=== PATIENT | male | born 1990 | race Caucasian/White ===

== ENCOUNTER → 2020-02-10 13:05 | Outpatient (BNVA) | payer BC, SELFPAY | PROVIDERS: PCP Nurse Practitioner Family; Referring Provider Nurse Practitioner Family; Visit Provider Internal Medicine Gastroenterology | DX: Z76.89 Persons encountering health services in other specified circumstances (principal) ==

== ENCOUNTER → 2020-03-16 13:30 | Outpatient (BNVA) | payer BC, SELFPAY | PROVIDERS: PCP Nurse Practitioner Family; Visit Provider Internal Medicine Gastroenterology | DX: Z76.89 Persons encountering health services in other specified circumstances (principal) ==

== ENCOUNTER → 2020-06-01 10:48 | Outpatient (BNVA) | payer BC, SELFPAY | PROVIDERS: PCP Nurse Practitioner Family; Referring Provider Nurse Practitioner Family; Visit Provider Internal Medicine Gastroenterology ==

== ENCOUNTER 2024-07-13 11:27 | Emergency (ER) | payer BC, SELFPAY ==
[2024-07-13 11:47] VITALS: BP 150/94; PULSE 115; RESP 16; TEMP 36.8; O2SAT 98; BMI 27.0
--- NOTE | 2024-07-13 11:52 | ED_ITS ---
HPI - General Adult General Chief complaint: Abdominal Pain Stated complaint: vomiting fever sent from urgent care Time Seen by Provider: 07/13/24 13:07 Source: patient Limitations: no limitations History of Present Illness ED Provider: Ella Christian PA-C HPI narrative: 33-year-old male presents with multiple complaints. Patient states he noted right ear pain in a prominent lymph node on the same side over the past few days. Positive contacts for strep throat. Associated nausea vomiting since this morning. Patient denies overt throat pain. No fever. No trismus no drooling, no abdominal pain. Related Data Home Medications ?Medication ?Instructions ?Recorded ?Confirmed cholecalciferol (vitamin D3) 50 50 mcg PO DAILY 02/10/20 06/10/20 mcg (2,000 unit) capsule famotidine 40 mg tablet (Pepcid) 40 mg PO DAILY 02/10/20 06/10/20 mesalamine 400 mg capsule (with 800 mg PO TID 02/10/20 06/10/20 delayed release tablets inside) Previous Rx's ?Medication ?Instructions ?Recorded adalimumab 40 mg/0.4 mL 40 mg (0.4 mL) subcut Q2W 28 days 04/28/20 subcutaneous pen kit (Humira(CF) #2 ea Pen) famotidine 40 mg tablet 40 mg PO DAILY 30 days #30 tabs 06/10/20 prednisone 10 mg tablet 10 mg PO BID 30 days #60 tabs 06/17/20 metoclopramide HCl 10 mg tablet 10 mg PO Q6H PRN nausea and 07/13/24 vomiting #10 tabs penicillin V potassium 500 mg 500 mg PO BID #19 tabs 07/13/24 tablet Allergies Allergy/AdvReac Type Severity Reaction Status Date / Time No Known Allergies Allergy Verified 07/13/24 11:48 Review of Systems 2 Review of Systems: Yes all other systems are reviewed and are negative Constitutional: Constitutional: Denies fatigue, Denies fever(s) and Reports malaise ENT: Reports otalgia and Denies sore throat Cardiovascular: Cardiovascular: Denies chest pain and Denies dyspnea Respiratory: Respiratory: Denies dyspnea Gastrointestinal: Gastrointestinal: Denies abdominal pain, Reports nausea and Reports vomiting Endocrine: Endocrine: Denies fatigue PMFSH Past Medical History Attestation statement: The following information was validated with the patient. Medical History Crohn's disease of both small and large intestine GERD (gastroesophageal reflux disease) Seasonal allergies Surgical History Hx of colonoscopy (04/27/13) Family History Family History Father No problems noted. Mother HTN (hypertension) Myocardial infarction, Onset Age: 50 Brother Testicular cancer Brother HTN (hypertension) Cardiovascular disease Maternal Grandmother Cancer Social History Social History (Updated 06/01/20 @ 10:55 by Candy Griffith CMA) Household Members: Spouse and Children Housing: House Alcohol intake: former Advance Directives: Yes Advance Directives Information Provided: Yes Advance Directives on File: No Current occupational status: student Physical Exam ED Vital Signs: Vital Signs - 24 hr 07/13/24 11:47 Temperature 98.2 F Pulse Rate 115 H Respiratory Rate 16 Blood Pressure 150/94 H Pulse Oximetry 98 Oxygen Delivery Method Room Air BMI result Body Mass Index 27.0 Const Other: Alert Orientation/consciousness: patient oriented x3 HENMT Other: The right TM is translucent without overlying erythema or exudate, no tragal tenderness no redness or exudate of the external ear canal. The oropharynx is erythematous, tonsils are prominent, uvula midline, no trismus no drooling, no sublingual fluctuance Neck Other: Prominent right-sided anterior cervical lymphadenopathy Resp Effort & Inspection: normal respiratory effort Cardio Other: Normal peripheral perfusion Skin Other: Warm dry no rash Neuro General: patient oriented x3, gait normal, no focal motor deficits and CN's II- XI intact bilaterally Psych Other: Calm cooperative Course Course Course Narrative: This is a rapid medical exam performed by lEla Christian PA-C. The patient is a 33-year-old male who presents with multiple complaints. Associated right- sided prominent cervical node, vague right ear pain, acute onset nausea vomiting today, positive contacts with strep throat. On exam he has a prominent right- sided cervical anterior node, the right TM is translucent without erythema, no tragal tenderness, oropharynx is erythematous without exudate tonsils are prominent. Plan to screen basic labs viral panel strep screen. The patient was stable and can return to the waiting room pending his full medical assessment. Medications Administered Discontinued Medications Generic Name Dose Route Start Last Admin Trade Name Kay PRN Reason Stop Dose Admin Metoclopramide HCl 10 mg 07/13/24 13:09 07/13/24 13:15 Metoclopramide Hcl 10 Mg/2 Ml Vial IM 07/13/24 13:10 10 mg ONCE ONE Administration Penicillin V Potassium 500 mg 07/13/24 13:08 07/13/24 13:15 Penicillin V Potassium 250 Mg Tablet PO 07/13/24 13:09 500 mg ONCE ONE Administration Medical Decision Making Medical Decision Making [facility] Narrative: 33-year-old male presents with multiple complaints. Patient states he noted right ear pain in a prominent lymph node on the same side over the past few days. Positive contacts for strep throat. Associated nausea vomiting since this morning. Patient denies overt throat pain. No fever. No trismus no drooling, no abdominal pain. No chronic issues History: Per patient I have considered the following differential diagnoses: Strep pharyngitis, viral pharyngitis, RPA, SOCIAL WORK MANAGER Plan: Viral panel and strep screen were ordered from triage, he is positive for strep throat. We will treat with penicillin. There was no evidence of RPA or SOCIAL WORK MANAGER based on my exam. I have independently reviewed the following tests: Viral panel negative, strep screen positive Lab Data 07/13/24 12:07 07/13/24 12:07 Labs: Lab Results 07/13/24 07/13/24 07/13/24 Range/Units 12:04 12:05 12:07 WBC 21.2 H (4.8-10.8) X10*3/uL RBC 5.22 (4.60-5.80) X10*6/uL Hgb 15.8 (14.0-18.0) g/dl Hct 47.2 (42.0-52.0) % MCV 90.4 (80.0-98.0) fL MCH 30.3 (27.0-33.0) pg MCHC 33.5 (31.0-36.0) g/dl RDW 13.1 (11.0-16.0) % Plt Count 379 (160-400) X10*3/uL MPV 10.1 (9.4-12.4) fL Immature Gran % (Auto) 0.4 (0.0-0.4) % Neut % (Auto) 92.0 H (45-73) % Lymph % (Auto) 3.9 L (20-40) % [place] % (Auto) 3.0 (2-11) % Eos % (Auto) 0.2 (0-4) % Baso % (Auto) 0.5 (0-2) % Lymph # (Auto) 0.8 L (1.2-4.9) X10*3/uL [place] # (Auto) 0.6 (0.1-1.2) X10*3/uL Eos # (Auto) 0.1 (0.0-0.4) X10*3/uL Baso # (Auto) 0.1 (0.0-0.2) X10*3/uL Abs Immat Gran (auto) 0.09 H (0.00-0.03) X10*3/uL Absolute Neuts (auto) 19.5 H (2.0-8.3) x10*3/uL Absolute Nucleated RBC 0.000 (0.0-0.012) X10*3/uL Nucleated RBC % (auto) 0.0 (0.0-0.2) /100WBC Smear Tech's Comments VERIFIED Sodium 140 (135-145) mmol/L Potassium 4.2 (3.3-5.1) mmol/L Chloride 107 (96-108) mmol/L Carbon Dioxide 24 (22-29) mmol/L Anion Gap 13 (12-20) BUN 8 L (9-16) mg/dL Creatinine 0.83 (0.5-1.4) mg/dL Estim Creat Clear Calc 116.1 Estimated GFR > 60 Random Glucose 132 H (60-115) mg/dL Calcium 9.6 (8.4-10.2) mg/dL Magnesium 1.8 (1.6-2.6) mg/dL Total Bilirubin 0.9 (0.0-1.0) mg/dL AST 20 (5-37) U/L ALT 13 (0-40) U/L Alkaline Phosphatase 90 (39-117) U/L Total Protein 8.8 H (6.5-8.0) g/dL Albumin 4.3 (3.5-5.0) g/dL Lipase 10 (8-78) U/L Influenza Type A (PCR) NEGATIVE (Negative) Influenza Type B (PCR) NEGATIVE (Negative) RSV RNA Qual (PCR) NEGATIVE (Negative) SARS-CoV-2 RNA (RT-PCR) NEGATIVE (Negative) S. pyogenes GrpA BRET Positive A (Negative) Discharge Plan Discharge Clinical Impression: Acute streptococcal pharyngitis Patient Disposition: Home, Self-Care Instructions: Strep Throat (ED) Additional Instructions: You tested positive for strep throat. See home care instructions. Use the metoclopramide as needed for nausea, take the penicillin as directed. Warm saltwater gargles we will help your throat pain. You can use [id number] ibuprofen 600 mg taken every 6 hours with food, alternated with [id number] Tylenol 1000 mg taken every 8 hours, for throat pain and fever. Follow up with your primary care provider as needed. Prescriptions: New penicillin V potassium 500 mg tablet 500 mg PO BID Qty: 19 0RF metoclopramide HCl 10 mg tablet 10 mg PO Q6H PRN (Reason: nausea and vomiting) Qty: 10 0RF No Action Humira(CF) Pen 40 mg/0.4 mL pen injector kit 40 mg subcut Q2W 28 Days Qty: 2 0RF Rx Instructions: Inject 1 pen (40mg) under the skin every other week prednisone 10 mg tablet 10 mg PO BID 30 Days Qty: 60 0RF Rx Instructions: one twice daily or taper as per Dr. Larkin's instructions famotidine 40 mg tablet 40 mg PO DAILY 30 Days Qty: 30 6RF mesalamine 400 mg capsule (with del rel tablets) 800 mg PO TID famotidine [Pepcid] 40 mg tablet 40 mg PO DAILY cholecalciferol (vitamin D3) 50 mcg (2,000 unit) capsule 50 mcg PO DAILY Stand Alone Forms: Work/School Release Print Language: [place]an
[2024-07-13 12:26] LABS: Basophils Absolute Auto 0.1 X10*3/uL (0.0-0.2); Basophils Percent Auto 0.5 % (0-2); Eosinophils Absolute Auto 0.1 X10*3/uL (0.0-0.4); Eosinophils Percent Auto 0.2 % (0-4); Hematocrit 47.2 % (42.0-52.0); Hemoglobin 15.8 g/dl (14.0-18.0); Imm Gran Abs Auto 0.09 X10*3/uL (0.00-0.03); Imm Gran Pct Auto 0.4 % (0.0-0.4); Lymphocytes Absolute Auto 0.8 X10*3/uL (1.2-4.9); Lymphocytes Percent Auto 3.9 % (20-40); MANUAL DIFF FLAG SCAN; Mean Corpuscular HGB Conc 33.5 g/dl (31.0-36.0); Mean Corpuscular Hemoglobin 30.3 pg (27.0-33.0); Mean Corpuscular Volume 90.4 fL (80.0-98.0); Mean Platelet Volume 10.1 fL (9.4-12.4); Monocytes Absolute Auto 0.6 X10*3/uL (0.1-1.2); Neutrophils Absolute Auto 19.5 x10*3/uL (2.0-8.3); Platelet Count 379 X10*3/uL (160-400); Red Blood Count 5.22 X10*6/uL (4.60-5.80); Red Cell Distribution Width 13.1 % (11.0-16.0); SCAN SMEAR FLAG 1; White Blood Count 21.2 X10*3/uL (4.8-10.8)
[2024-07-13 12:51] LABS: SLIDE REVIEW VERIFIED
[2024-07-13 12:53] LABS: IDNOW Serial# 58CA691E; Strep A Nucleic Acid Positive (Negative)
[2024-07-13 12:54] LABS: Alanine Aminotransferase 13 U/L (0-40); Albumin Level 4.3 g/dL (3.5-5.0); Alkaline Phosphatase 90 U/L (39-117); Anion Gap 13 (12-20); Aspartate Amino Transferase 20 U/L (5-37); Bilirubin Total 0.9 mg/dL (0.0-1.0); Blood Urea Nitrogen 8 mg/dL (9-16); Calcium 9.6 mg/dL (8.4-10.2); Carbon Dioxide 24 mmol/L (22-29); Chloride 107 mmol/L (96-108); Creatinine Clr Calc Pharmacy 116.1; Estimated Glomerular Filt Rate > 60; Glucose Random 132 mg/dL (60-115); Lipase 10 U/L (8-78); Magnesium 1.8 mg/dL (1.6-2.6); Potassium 4.2 mmol/L (3.3-5.1); Sodium 140 mmol/L (135-145); Total Protein 8.8 g/dL (6.5-8.0)
[2024-07-13 13:11] LABS: Influenza A PCR NEGATIVE (Negative); Influenza B PCR NEGATIVE (Negative); Resp Syncy Virus RNA Qual PCR NEGATIVE (Negative); SARS COV2 PCR INHOUSE NEGATIVE (Negative)
[2024-07-13] MEDS: Penicillin V Potassium 250 MG TABLET 500 MG PO (13:15)
[2024-07-13] MEDS: Metoclopramide HCl 10 MG/2 ML VIAL IM (13:15)
[2024-07-13 13:28] VITALS: BP 150/94; PULSE 115; RESP 16; TEMP 36.8; O2SAT 98
== END 2024-07-13 13:29 | disposition home or self-care (01) ==
PROVIDERS: Physician Assistant Medical; Emergency Provider Emergency Medicine Emergency Medical Services
DX: J02.0 Streptococcal pharyngitis (principal); H92.01 Otalgia, right ear; R10.2 Pelvic and perineal pain; Z03.818 Encounter for observation for suspected exposure to other biological agents ruled out; Z79.899 Other long term (current) drug therapy
CPT/HCPCS: 0241U; 36415; 80053; 83690; 83735; 85025; 87651; 96372; 99282; 99284; J2765

== ENCOUNTER 2024-09-18 14:48 | Inpatient (IN) | payer BC, OTHER, SELFPAY ==
--- NOTE | ~2024-09-18 | CT_ITS ---
CLINICAL HISTORY: severe low abd pain hx of Crohns CT abdomen and pelvis with contrast Comparison: None Findings: No consolidation or effusion. There is a 17 mm gallstone impacted at the level of the gallbladder neck. The gallbladder is dilated and thickened. There is pericholecystic fluid and there is edema of the mesentery adjacent to the gallbladder. No biliary dilatation. Unremarkable liver, spleen, pancreas, adrenal glands and kidneys. No bowel obstruction, pneumoperitoneum, or pneumatosis. There is a small umbilical hernia containing fat. Unremarkable pelvic contents. Normal appendix. No acute fracture. IMPRESSION: 1. Severe acute cholecystitis. 2. There is a small amount of free fluid within the right upper quadrant. This document has been electronically signed by: Tiera Kelley MD on 09/18/2024 17:46:36
--- NOTE | ~2024-09-18 | XR_ITS ---
CLINICAL HISTORY: desats in pacu, rhonchi and rales lower lobes 1 view chest Comparison: None Findings: Cardiac and mediastinal contours are normal. Mild interstitial prominence with scattered peribronchial thickening. No focal consolidation. No effusion. No pneumothorax. No acute osseous finding. Impression: Mild interstitial prominence with scattered peribronchial thickening. No focal consolidation. No overt edema. No effusion. This document has been electronically signed by: Kevin Peacock MD on 09/20/2024 12:51:08
[2024-09-18 14:58] VITALS: BP 151/101; PULSE 91; RESP 16; TEMP 36.7; O2SAT 98; BMI 26.9
--- NOTE | 2024-09-18 15:03 | ED.GENADULT ---
HPI - General Adult General Chief complaint: Abdominal Pain Stated complaint: Severe Abd Pain Time Seen by Provider: 09/18/24 16:01 Source: patient and old records reviewed Mode of arrival: ambulatory Limitations: no limitations History of Present Illness ED Provider: JEN MAS narrative: 34 yo male with PMH of Crohns who has been controlled on Stelara. He really doesn't have a local GI doctor but still gets prescribed by a GI in [place]. He has no PMH of surgeries. He notes about a week ago he had a flare up of his Crohns and was having a lot of pain it went away and came back today. He denies fevers, no vomiting, no bloody stool. He had a normal BM this AM. He states he has not been on prednisone since 2019. He is looking for a local GI doctor. complaint: abd pain Onset (ago): week(s) (1) Location: abdomen Radiation: non-radiation Severity: severe Quality: stabbing Pain Consistency: intermittent Relieving factors: none Exacerbating factors: movement Associated symptoms: loss of appetite, malaise and nausea/vomiting Treatments prior to arrival: none Related Data Home Medications ?Medication ?Instructions ?Recorded ?Confirmed cholecalciferol (vitamin D3) 50 50 mcg PO DAILY 02/10/20 09/18/24 mcg (2,000 unit) capsule acetaminophen 500 mg tablet 500 - 1,000 mg PO Q6H PRN Pain 09/18/24 09/18/24 famotidine 40 mg tablet 40 mg PO DAILY@0630 PRN Acid Reflux 09/18/24 09/18/24 sertraline 50 mg tablet 50 mg PO DAILY 09/18/24 09/18/24 ustekinumab 90 mg/mL subcutaneous 90 mg subcut [id number] 09/18/24 09/18/24 syringe (Stelara) Allergies Allergy/AdvReac Type Severity Reaction Status Date / Time No Known Allergies Allergy Verified 09/18/24 15:00 Review of Systems Review of Systems: Constitutional : No Weight loss, No Fever, No Chills ENT/Mouth : No sore throat, No Rhinorrhea Eyes: No Swelling, No Redness Cardiovascular : No Chest Pain, No SOB, NoEdema Respiratory : No Cough, No Sputum, No Wheezing Gastrointestinal : Positive Nausea, Positive Vomiting, no Diarrhea, positive abdominal Pain, No Hematochezia, No Melena Genitourinary : No Dysuria, No Urinary Frequency, No Hematuria, No Urgency Musculoskeletal : No joint pain, No Myalgias, No Joint Swelling Skin : No Skin Lesions, No rash Neuro : No Weakness, No Numbness, No Dizziness, No Headache All other systems reviewed and are negative. [facility] Past Medical History Attestation statement: The following information was validated with the patient. Source: old records reviewed Medical History Seasonal allergies GERD (gastroesophageal reflux disease) Crohn's disease of both small and large intestine Surgical History Hx of colonoscopy (04/27/13) Family History Family History Father No problems noted. Mother HTN (hypertension) Myocardial infarction, Onset Age: 50 Brother Testicular cancer Brother HTN (hypertension) Cardiovascular disease Maternal Grandmother Cancer Social History Social History Household Members: Spouse and Children Housing: House Alcohol intake: former Patient Tobacco Use Status: Never used Tobacco Smoked in Last 30 Days: No Use of substances other than those prescribed or required for medical reasons: No Advance Directives: No Advance Directives Information Provided: No Do you have a plan to hurt others: No Plan Nutrition Risks: No Nutritional Risk Current occupational status: student Physical Exam ED Vital Signs: Vital Signs - 24 hr 09/18/24 14:58 Temperature 98.1 F Pulse Rate 91 Respiratory Rate 16 Blood Pressure 151/101 H Pulse Oximetry 98 Oxygen Delivery Method Room Air BMI result Body Mass Index 26.9 Appearance: Alert. Oriented X3. No acute distress. Eyes: Pupils equal, round and reactive to light. ENT: Pharynx normal. Neck: Normal inspection. Neck supple. CVS: Normal heart rate and rhythm. Pulses normal. Respiratory: No respiratory distress. Breath sounds normal. Abdomen: Soft but moderate ttp in lower abdomen and RLQ no rebound but vol guarding noted Skin: Skin warm and dry. Normal skin color. Normal skin turgor. Extremities: No lower extremity edema. No calf ttp Neuro: Oriented X 3. No motor deficit. No sensory deficit. CN2-12 intact Course Course Course Narrative: RME: 34 year male history of kidney stones and Crohn's presents to ED for abdominal pain radiating to back flank without any fever or chills. Patient denies any urinary symptoms. Labs ordered. Reevaluation(s) Reevaluation #1: given WBC count and CRP infection suspected at 456pm IV zosyn ordered Medications Administered Generic Name Dose Route Start Last Admin Trade Name Freq PRN Reason Stop Dose Admin Hydromorphone HCl 1 mg 09/18/24 22:16 09/18/24 22:59 Hydromorphone Hcl 1 Mg/Ml Syringe IVPUSH 1 mg Q4H PRN Administration Pain, Severe (Pain Scale 7-10) Protocol Dextrose/Sodium Chloride 1,000 mls @ 80 mls/hr 09/18/24 18:15 09/18/24 18:35 D5ns IVCONT 80 mls/hr .[id number] WENDI Administration Piperacillin Sod/Tazobactam 50 mls @ 100 mls/hr 09/18/24 23:30 09/18/24 23:58 Sod 3.375 gm/ Sodium Chloride IV Infused Q6H WENDI Infusion Sodium Chloride 3 ml 09/19/24 00:00 09/19/24 00:30 0.9 % Sodium Chloride Flush 3 Ml Syringe IVFLUSH Not Given QSHIFT WENDI Discontinued Medications Generic Name Dose Route Start Last Admin Trade Name Freq PRN Reason Stop Dose Admin Hydromorphone HCl 1 mg 09/18/24 16:02 09/18/24 16:15 Hydromorphone Hcl 1 Mg/Ml Syringe IVPUSH 09/18/24 16:03 1 mg ONCE ONE Administration Protocol Hydromorphone HCl 1 mg 09/18/24 17:30 09/18/24 17:45 Hydromorphone Hcl 1 Mg/Ml Syringe IVPUSH 09/18/24 17:31 1 mg ONCE ONE Administration Protocol Lactated Ringer's 1,000 mls @ 999 mls/hr 09/18/24 16:02 09/18/24 17:45 Lr IV 09/18/24 17:02 Infused .Q1H1M ONE Infusion Piperacillin Sod/Tazobactam 50 mls @ 100 mls/hr 09/18/24 16:56 09/18/24 18:00 Sod 3.375 gm/ Sodium Chloride IV 09/18/24 17:25 Infused ONCE ONE Infusion Iohexol 100 ml 09/18/24 17:11 09/18/24 17:12 Iohexol 350 Mg/Ml 100 Ml Infus..Btl IV 09/18/24 17:12 85 ml ONCE ONE Administration Ketorolac Tromethamine 15 mg 09/18/24 17:30 09/18/24 17:45 Ketorolac Tromethamine 15 Mg/Ml Vial IVPUSH 09/18/24 17:31 15 mg ONCE ONE Administration Ondansetron HCl 4 mg 09/18/24 16:02 09/18/24 16:15 Ondansetron Hcl 4 Mg/2 Ml Vial IVPUSH 09/18/24 16:03 4 mg ONCE ONE Administration Sertraline HCl 50 mg 09/18/24 18:12 09/18/24 18:34 Sertraline Hcl 50 Mg Tablet PO 09/18/24 18:13 50 mg DAILY ONE Administration Medical Decision Making Medical Decision Making [facility] Narrative: 34 yo male with PMH of Cronhs has been well controlled on Stelara notes 1 week ago colicky RLQ pain and lower abdominal pain but no fevers, chills, diarrhea or dysuria. It went away but then today it was much more severe. At this time basic labs, Differential Diagnosis Differential Diagnoses: The differential diagnosis associated with the presentation includes Crohns flare, PSBO, SBO, appendix pathology , less likely pancreatitis denies RUQ pain on exam Admission/Observation Consideration of admission/observation: Escalation of care including admission/observation considered admit for further management and treatment Consult Healthcare Provider Management of the patient was discussed with: Law Secretary (Dr. Zavala in to see patient) pain has moved to RUQ pain at this time suspect possible biliary colic 550pm. Dr. Zavala to admit Lab Data [facility] Lab Attestation statement: I reviewed the patient's lab results. 09/18/24 15:13 09/18/24 15:13 Labs: Lab Results 09/18/24 09/18/24 09/18/24 Range/Units 15:13 16:11 17:27 WBC 15.7 H (4.8-10.8) X10*3/uL RBC 5.14 (4.60-5.80) X10*6/uL Hgb 15.8 (14.0-18.0) g/dl Hct 44.8 (42.0-52.0) % MCV 87.2 (80.0-98.0) fL MCH 30.7 (27.0-33.0) pg MCHC 35.3 (31.0-36.0) g/dl RDW 12.5 (11.0-16.0) % Plt Count 339 (160-400) X10*3/uL MPV 10.2 (9.4-12.4) fL Immature Gran % (Auto) 0.3 (0.0-0.4) % Neut % (Auto) 83.2 H (45-73) % Lymph % (Auto) 9.6 L (20-40) % [place] % (Auto) 5.5 (2-11) % Eos % (Auto) 1.1 (0-4) % Baso % (Auto) 0.3 (0-2) % Lymph # (Auto) 1.5 (1.2-4.9) X10*3/uL [place] # (Auto) 0.9 (0.1-1.2) X10*3/uL Eos # (Auto) 0.2 (0.0-0.4) X10*3/uL Baso # (Auto) 0.1 (0.0-0.2) X10*3/uL Abs Immat Gran (auto) 0.05 H (0.00-0.03) X10*3/uL Absolute Neuts (auto) 13.1 H (2.0-8.3) x10*3/uL Absolute Nucleated RBC 0.000 (0.0-0.012) X10*3/uL Nucleated RBC % (auto) 0.0 (0.0-0.2) /100WBC Sodium 136 (135-145) mmol/L Potassium 3.9 (3.3-5.1) mmol/L Chloride 101 (96-108) mmol/L Carbon Dioxide 26 (22-29) mmol/L Anion Gap 13 (12-20) BUN 10 (9-16) mg/dL Creatinine 0.90 (0.5-1.4) mg/dL Estim Creat Clear Calc 102.3 Estimated GFR > 60 Random Glucose 112 (60-115) mg/dL Lactic Acid 1.6 (0.5-2.0) mmol/L Calcium 9.8 (8.4-10.2) mg/dL Total Bilirubin 1.2 H (0.0-1.0) mg/dL AST 20 (5-37) U/L ALT 14 (0-40) U/L Alkaline Phosphatase 76 (39-117) U/L C-Reactive Protein 19.48 H (< or = 0.50) mg/dL Total Protein 8.3 H (6.5-8.0) g/dL Albumin 4.4 (3.5-5.0) g/dL Lipase 14 (8-78) U/L Urine Color Dark Yellow Urine Appearance Clear Urine pH 5.5 (5.0-9.0) Ur Specific [place] >= 1.030 H (1.005-1.025) Urine Protein 30 (1+) H (Neg-Trace) mg/dL Urine Glucose (UA) Negative (Negative) mg/dL Urine Ketones Trace (Negative) mg/dL Urine Blood Negative (Negative) Urine Nitrite Negative (Negative) Ur Leukocyte Esterase Negative (Negative) Urine RBC 0-2 (0-2) /HPF Urine WBC 0-5 (0-5) /HPF Ur Squamous Epith Cells 0-2 (0-2) /HPF Urine Bacteria None Seen (None Seen) Hyaline Casts 3-5 (0-2) /LPF Independent Interpretation I performed an independent interpretation of an: CT Scan (+ cholecystitis) Radiology Impression Discussion of test interpretation with radiology: I have reviewed the radiologist's reading. Independent Historian Clinical information obtained from an independent historian. History obtained from or confirmed by: Spouse External Record Review External record reviewed: Outpatient record Critical Care Time Critical Care Time Critical Care Time: Yes Total Critical Care Time: 35 Attestation: Time is exclusive of separately billable procedures. Time includes: direct patient care, patient reassessment, coordination of patient care, interpretation of data (laboratory data, pulse oximetry, CT scans), review of patient's medical records, medical consultation and documentation of patient care. Repeat IV dilaudid with improvement in pain. Procedures excluded from critical care time: none. I attest to this time spent taking care of the patient Discharge Plan Discharge Clinical Impression: Acute cholecystitis Abdominal pain Qualifiers: Abdominal location: right lower quadrant Qualified Code(s): R10.31 - Right lower quadrant pain Patient Disposition: Admitted As Inpatient Interventions: Admission Worksheet (ED) Last Done: 09/18/24 18:32
[2024-09-18 15:17] LABS: MANUAL DIFF FLAG NO
[2024-09-18 15:24] LABS: Basophils Absolute Auto 0.1 X10*3/uL (0.0-0.2); Basophils Percent Auto 0.3 % (0-2); Eosinophils Absolute Auto 0.2 X10*3/uL (0.0-0.4); Eosinophils Percent Auto 1.1 % (0-4); Hematocrit 44.8 % (42.0-52.0); Hemoglobin 15.8 g/dl (14.0-18.0); Imm Gran Abs Auto 0.05 X10*3/uL (0.00-0.03); Imm Gran Pct Auto 0.3 % (0.0-0.4); Lymphocytes Absolute Auto 1.5 X10*3/uL (1.2-4.9); Lymphocytes Percent Auto 9.6 % (20-40); Mean Corpuscular HGB Conc 35.3 g/dl (31.0-36.0); Mean Corpuscular Hemoglobin 30.7 pg (27.0-33.0); Mean Corpuscular Volume 87.2 fL (80.0-98.0); Mean Platelet Volume 10.2 fL (9.4-12.4); Monocytes Absolute Auto 0.9 X10*3/uL (0.1-1.2); Monocytes Percent Auto 5.5 % (2-11); Neutrophils Absolute Auto 13.1 x10*3/uL (2.0-8.3); Neutrophils Percent Auto 83.2 % (45-73); Platelet Count 339 X10*3/uL (160-400); Red Blood Count 5.14 X10*6/uL (4.60-5.80); Red Cell Distribution Width 12.5 % (11.0-16.0); White Blood Count 15.7 X10*3/uL (4.8-10.8)
[2024-09-18 16:07] LABS: Alanine Aminotransferase 14 U/L (0-40); Albumin Level 4.4 g/dL (3.5-5.0); Anion Gap 13 (12-20); Aspartate Amino Transferase 20 U/L (5-37); Bilirubin Total 1.2 mg/dL (0.0-1.0); Blood Urea Nitrogen 10 mg/dL (9-16); Calcium 9.8 mg/dL (8.4-10.2); Carbon Dioxide 26 mmol/L (22-29); Chloride 101 mmol/L (96-108); Creatinine Clr Calc Pharmacy 102.3; Estimated Glomerular Filt Rate > 60; Glucose Random 112 mg/dL (60-115); Lipase 14 U/L (8-78); Potassium 3.9 mmol/L (3.3-5.1); Sodium 136 mmol/L (135-145); Total Protein 8.3 g/dL (6.5-8.0)
[2024-09-18] MEDS: ondansetron HCL 4 MG/2 ML VIAL IVPUSH (16:15)
[2024-09-18] MEDS: HYDROmorphone HCl 1 MG/ML SYRINGE IVPUSH ×3 (16:15→22:59)
[2024-09-18] MEDS: Lactated Ringers 1,000 ML 999 ML IV (16:15)
[2024-09-18 16:31] LABS: C Reactive Protein 19.48 mg/dL (< or = 0.50)
[2024-09-18 16:34] LABS: Lactic Acid 1.6 mmol/L (0.5-2.0)
[2024-09-18 17:08] LABS: Alkaline Phosphatase 76 U/L (39-117)
[2024-09-18] MEDS: iohexoL 350 MG/ML 100 ML INFUS..BTL IV (17:12)
[2024-09-18] MEDS: Piperacillin Sodium/Tazobactam 3.375 GM in 0.9 % Sodium Chloride 50 ML IV ×2 (17:24→22:58)
[2024-09-18 17:36] LABS: Appearance Urine Clear; Color Urine Dark Yellow; Glucose Urine UA Negative (Negative); Leukocyte Esterase Urine Negative (Negative); Nitrite Urine Negative (Negative); PH 5.5 (5.0-9.0); Specific Gravity - Urine >= 1.030 (1.005-1.025); UMIC TRIGGER UACC YES; Urine Blood Negative (Negative); Urine Ketones Trace mg/dL (Negative); Urine Protein 30 (1+) mg/dL (Neg-Trace)
[2024-09-18] MEDS: Ketorolac Tromethamine 15 MG/ML VIAL IVPUSH (17:45)
[2024-09-18 17:46] LABS: Bacteria Urine None Seen (None Seen); RBC Urine 0-2 /HPF (0-2); Squamous Epithelial Cell Urine 0-2 /HPF (0-2); WBC Urine 0-5 /HPF (0-5)
--- NOTE | 2024-09-18 17:56 | P.CONGS_ITS ---
History of Present Illness Consult details Consult date: 09/18/24 Narrative: 34-year-old male with known Crohn's disease, in the ER because right upper quadrant pain He says that this started sometime about 03:00 this morning. This seems to have been constant although not really severe he says. He denies any vomiting. He says that because of the persistence of pain, I decided to come to the emergency room He says that a week ago, he had similar pain which resolved on his own after a day. He does admit to having some low-grade pain on and off the rest of the week. He says was attributing this to his Crohn's disease. He was diagnosed with Crohn's disease about 10 years ago. He has been maintained on Stelara. He used to see Dr. Bear of GI here but [place], he said he was seeing fountain operator via [facility] [place]. Review of Systems 2 Constitutional: Constitutional: Denies chills and Denies fever(s) Cardiovascular: Cardiovascular: Denies chest pain, Denies dyspnea and Denies dyspnea on exertion Respiratory: Respiratory: Denies cough, Denies dyspnea and Denies dyspnea on exertion Gastrointestinal: Gastrointestinal: Denies hematochezia and Denies change in bowel habits Genitourinary: Genitourinary: Denies hematuria and Denies difficulty urinating Musculoskeletal: Musculoskeletal: Denies back pain and Denies limited range of motion Neurologic: Denies focal weakness and Denies convulsions Psychiatric: Psychiatric: Denies depression and Denies mood swings PMFSH Past Medical History Medical History Seasonal allergies GERD (gastroesophageal reflux disease) Crohn's disease of both small and large intestine Family History Family History Father No problems noted. Mother HTN (hypertension) Myocardial infarction, Onset Age: 50 Brother Testicular cancer Brother HTN (hypertension) Cardiovascular disease Maternal Grandmother Cancer Surgical History Surgical History Hx of colonoscopy (04/27/13) Social History Social History Household Members: Spouse and Children Housing: House Alcohol intake: former Smoked in Last 30 Days: No Use of substances other than those prescribed or required for medical reasons: No Advance Directives: No Advance Directives Information Provided: No Do you have a plan to hurt others: No Plan Current occupational status: student Meds Allergies Allergy/AdvReac Type Severity Reaction Status Date / Time No Known Allergies Allergy Verified 09/18/24 15:00 Home Medications ?Medication ?Instructions ?Recorded ?Confirmed ?Last Taken ?Type cholecalciferol (vitamin D3) 50 50 mcg PO DAILY 02/10/20 06/10/20 Unknown History mcg (2,000 unit) capsule famotidine 40 mg tablet (Pepcid) 40 mg PO DAILY 02/10/20 06/10/20 Unknown History mesalamine 400 mg capsule (with 800 mg PO TID 02/10/20 06/10/20 Unknown History delayed release tablets inside) Physical Exam 2 Vital Signs: Vital Signs: Last Vital Signs Temp 98.1 F 09/18/24 14:58 Pulse 91 09/18/24 14:58 Resp 16 09/18/24 14:58 BP 151/101 H 09/18/24 14:58 Pulse Ox 98 09/18/24 14:58 O2 Del Method Room Air 09/18/24 14:58 BMI result Body Mass Index 26.9 Const: General: comfortable and no acute distress O rientation/consciousness: patient oriented x3 Neck: Neck: Yes no lymphadenopathy Resp: Auscultation: clear to auscultation bilaterally Cardio: Rhythm: regular rhythm GI: Other: Tender and right upper quadrant although guarding and rebound, otherwise benign Palpation (GI): Soft to palpation, nontender and no guarding Neuro: General: patient oriented x3 Results Labs 09/18/24 15:13 09/18/24 15:13 Labs: Abnormal lab results 09/18/24 09/18/24 Range/Units 15:13 17:27 WBC 15.7 H (4.8-10.8) X10*3/uL Neut % (Auto) 83.2 H (45-73) % Lymph % (Auto) 9.6 L (20-40) % Abs Immat Gran (auto) 0.05 H (0.00-0.03) X10*3/uL Absolute Neuts (auto) 13.1 H (2.0-8.3) x10*3/uL Total Bilirubin 1.2 H (0.0-1.0) mg/dL C-Reactive Protein 19.48 H (< or = 0.50) mg/dL Total Protein 8.3 H (6.5-8.0) g/dL Ur Specific [place] >= 1.030 H (1.005-1.025) Urine Protein 30 (1+) H (Neg-Trace) mg/dL Short CBC 09/18/24 Range/Units 15:13 WBC 15.7 H (4.8-10.8) X10*3/uL Hgb 15.8 (14.0-18.0) g/dl Hct 44.8 (42.0-52.0) % Plt Count 339 (160-400) X10*3/uL BMP 09/18/24 15:13 Sodium 136 Potassium 3.9 Chloride 101 Carbon Dioxide 26 BUN 10 Creatinine 0.90 Calcium 9.8 Liver Function 09/18/24 Range/Units 15:13 Total Bilirubin 1.2 H (0.0-1.0) mg/dL AST 20 (5-37) U/L ALT 14 (0-40) U/L Alkaline Phosphatase 76 (39-117) U/L Albumin 4.4 (3.5-5.0) g/dL Urine 09/18/24 Range/Units 17:27 Urine Color Dark Yellow Urine Appearance Clear Urine pH 5.5 (5.0-9.0) Ur Specific [place] >= 1.030 H (1.005-1.025) Urine Protein 30 (1+) H (Neg-Trace) mg/dL Urine Glucose (UA) Negative (Negative) mg/dL All other labs normal. Assessment and Plan (1) Acute cholecystitis: Status: Acute He has tenderness in the right upper quadrant. I have reviewed his CAT scan and this shows inflammatory changes in the gallbladder consistent with acute cholecystitis. I did explain to him the option of proceeding with a laparoscopic cholecystectomy with possible conversion to open. I reviewed with the risks including but not limited to bleeding, infections, injury to other organs including bowel, liver, bile ducts, retained stones, bile leak, as well as the benefits and alternatives. I explained to him what to expect postoperatively. I did tell him that the operating room here in [place] is not operative tomorrow, Saturday, due to maintenance issues. Depending on his clinical course, I may able to do his surgery on Saturday or Saturday . Another option is to send him out to another institution if he wanted an earlier cholecystectomy After discussions between himself and his , they have decided to stay in the hospital to proceed with IV antibiotic therapy for now and likely do the surgery down the line. His abdominal exam is otherwise benign. He is not septic looking. His bilirubin is 1.2 and we will also follow this. Procedures Date of Service Date of Service: 09/18/24
--- NOTE | 2024-09-18 18:05 | PM.HPGS ---
History of Present Illness History of Present Illness Date of Service: 09/21/24 Chief complaint: Acute Cholecystitis Narrative: Jon Pagan Jr is a 34-year-old male with known Crohn's disease, in the ER because right upper quadrant pain He says that this started sometime about 03:00 this morning. This seems to have been constant although not really severe he says. He denies any vomiting. He says that because of the persistence of pain, I decided to come to the emergency room He says that a week ago, he had similar pain which resolved on his own after a day. He does admit to having some low-grade pain on and off the rest of the week. He says was attributing this to his Crohn's disease. He was diagnosed with Crohn's disease about 10 years ago. He has been maintained on Stelara. He used to see Dr. Bear of GI here but [place] HUIZAR, he said he was seeing conditioner tender via [facility]. Review of Systems Constitutional: Constitutional: Denies chills and Denies fever(s) Cardiovascular: Cardiovascular: Denies chest pain, Denies dyspnea and Denies dyspnea on exertion Respiratory: Respiratory: Denies cough, Denies dyspnea and Denies dyspnea on exertion Gastrointestinal: Gastrointestinal: Denies hematochezia and Denies change in bowel habits Genitourinary: Genitourinary: Denies hematuria and Denies difficulty urinating Musculoskeletal: Musculoskeletal: Denies back pain and Denies limited range of motion Neurologic: Denies focal weakness and Denies convulsions Psychiatric: Psychiatric: Denies depression and Denies mood swings PMF Past Medical History Medical History Seasonal allergies GERD (gastroesophageal reflux disease) Crohn's disease of both small and large intestine Family History Family History Father No problems noted. Mother HTN (hypertension) Myocardial infarction, Onset Age: 50 Brother Testicular cancer Brother HTN (hypertension) Cardiovascular disease Maternal Grandmother Cancer Surgical History Surgical History Hx of colonoscopy (04/27/13) Social History Social History Household Members: Significant Other Housing: Apartment Do you presently have visiting nurse or other home services: No Alcohol intake: former Patient Tobacco Use Status: Never used Tobacco service: No Current occupational status: student Meds Allergies Allergy/AdvReac Type Severity Reaction Status Date / Time No Known Allergies Allergy Verified 09/18/24 15:00 Home Medications ?Medication ?Instructions ?Recorded ?Confirmed ?Last Taken ?Type cholecalciferol (vitamin D3) 50 50 mcg PO DAILY 02/10/20 09/18/24 09/18/24 History mcg (2,000 unit) capsule acetaminophen 500 mg tablet 500 - 1,000 mg PO Q6H PRN Pain 09/18/24 09/18/24 Unknown History famotidine 40 mg tablet 40 mg PO DAILY@0630 PRN Acid Reflux 09/18/24 09/18/24 Unknown History sertraline 50 mg tablet 50 mg PO DAILY 09/18/24 09/18/24 09/18/24 History ustekinumab 90 mg/mL subcutaneous 90 mg subcut [id number] 09/18/24 09/18/24 4 Weeks Ago History syringe (Stelara) ~08/21/24 Physical Exam Vital Signs: Vital Signs: Last Vital Signs Temp 98.1 F 09/18/24 14:58 Pulse 91 09/18/24 14:58 Resp 16 09/18/24 14:58 BP 151/101 H 09/18/24 14:58 Pulse Ox 98 09/18/24 14:58 O2 Del Method Room Air 09/18/24 14:58 BMI result Body Mass Index 26.9 Const: General: comfortable and no acute distress Orientation/consciousness: patient oriented x3 Eyes: Other: Anicteric Neck: Neck: Yes no lymphadenopathy Resp: Auscultation: clear to auscultation bilaterally Cardio: Rhythm: regular rhythm GI: Other: Some tenderness on right upper quadrant, with no guarding or rebound Palpation (GI): Soft to palpation, nontender and no guarding Neuro: General: patient oriented x3 Results Results Labs: Short CBC 09/18/24 Range/Units 15:13 WBC 15.7 H (4.8-10.8) X10*3/uL Hgb 15.8 (14.0-18.0) g/dl Hct 44.8 (42.0-52.0) % Plt Count 339 (160-400) X10*3/uL BMP 09/18/24 15:13 Sodium 136 Potassium 3.9 Chloride 101 Carbon Dioxide 26 BUN 10 Creatinine 0.90 Calcium 9.8 Liver Function 09/18/24 Range/Units 15:13 Total Bilirubin 1.2 H (0.0-1.0) mg/dL AST 20 (5-37) U/L ALT 14 (0-40) U/L Alkaline Phosphatase 76 (39-117) U/L Albumin 4.4 (3.5-5.0) g/dL Urine 09/18/24 Range/Units 17:27 Urine Color Dark Yellow Urine Appearance Clear Urine pH 5.5 (5.0-9.0) Ur Specific [place] >= 1.030 H (1.005-1.025) Urine Protein 30 (1+) H (Neg-Trace) mg/dL Urine Glucose (UA) Negative (Negative) mg/dL Abdomen CT scan report/results: report reviewed and image reviewed CT scan - pelvis: report reviewed and image reviewed Additional studies: There is a 17 mm gallstone impacted at the level of the gallbladder neck. The gallbladder is dilated and thickened. There is pericholecystic fluid and there is edema of the mesentery adjacent to the gallbladder. No biliary dilatation. Unremarkable liver, spleen, pancreas, adrenal glands and kidneys. No bowel obstruction, pneumoperitoneum, or pneumatosis. There is a small umbilical hernia containing fat. Unremarkable pelvic contents. Normal appendix. No acute fracture. IMPRESSION: 1. Severe acute cholecystitis. 2. There is a small amount of free fluid within the right upper quadrant. Assessment and Plan (1) Acute cholecystitis: Status: Acute He has tenderness in the right upper quadrant. I have reviewed his CAT scan and this shows inflammatory changes in the gallbladder consistent with acute cholecystitis. I did explain to him the option of proceeding with a laparoscopic cholecystectomy with possible conversion to open. I reviewed with the risks including but not limited to bleeding, infections, injury to other organs including bowel, liver, bile ducts, retained stones, bile leak, as well as the benefits and alternatives. I explained to him what to expect postoperatively. I did tell him that the operating room here in [place] is not operative tomorrow, Saturday, due to maintenance issues. Depending on his clinical course, I may able to do his surgery on Saturday or Saturday . Another option is to send him out to another institution if he wanted an earlier cholecystectomy After discussions between himself and his , they have decided to stay in the hospital to proceed with IV antibiotic therapy for now and likely do the surgery down the line. His abdominal exam is otherwise benign. He is not septic looking. His bilirubin is 1.2 and we will also follow this. Quality Stroke Does the patient have a stroke diagnosis?: No VTE Prior VTE?: No VTE Risk Level:: Medical - low VTE Device Contraindication: N/A - Device Ordered VTE Drug Contraindication: Treatment Not Indicated Procedures Date of Service Date of Service: 09/21/24
[2024-09-18] MEDS: Sertraline HCL 50 MG TABLET PO (18:34)
--- NOTE | 2024-09-18 18:34 | PHA.MEDREC ---
Addendum entered by Dennis Sherwood [facility] 09/18/24 18:51: med rec reviewed Original Note: Pharmacy Consult ? Medication Reconciliation Pharmacy has completed the medication reconciliation. Spoke with pt and he confirmed his medications. Pt states he is still taking the Sertraline 50mg tab once a day and states he took one this morning and is still filling them at [facility]. I went to call [facility] but they had already closed for the night. Pt confirmed his Stelara injection once every 2 months and confirmed he last took it at the end of July.
[2024-09-18] MEDS: Dextrose 5 % and 0.9 % NaCl 1,000 ML 80 ML IVCONT (18:35)
[2024-09-18 19:12] VITALS: BP 122/83; PULSE 94; RESP 18; TEMP 37.1; O2SAT 95
[2024-09-18 23:01] VITALS: BP 128/82; PULSE 85; RESP 16; TEMP 36.7; O2SAT 96
[2024-09-19] VITALS (10 sets, daily range): BP systolic 105–145; BP diastolic 64–87; PULSE 85–108; RESP 14–18; TEMP 36.3–37.3; O2SAT 92–95; BMI 27.0
[2024-09-19] MEDS: HYDROmorphone HCl 1 MG/ML SYRINGE IVPUSH ×4 (03:05→19:21)
[2024-09-19] MEDS: Piperacillin Sodium/Tazobactam 3.375 GM in 0.9 % Sodium Chloride 50 ML IV ×4 (05:17→23:08)
[2024-09-19] MEDS: Dextrose 5 % and 0.9 % NaCl 1,000 ML 80 ML IVCONT ×2 (06:10→17:52)
[2024-09-19 06:47] LABS: Hematocrit 40.1 % (42.0-52.0); Hemoglobin 13.6 g/dl (14.0-18.0); Mean Corpuscular HGB Conc 33.9 g/dl (31.0-36.0); Mean Corpuscular Hemoglobin 30.6 pg (27.0-33.0); Mean Corpuscular Volume 90.1 fL (80.0-98.0); Mean Platelet Volume 10.5 fL (9.4-12.4); Platelet Count 282 X10*3/uL (160-400); Red Blood Count 4.45 X10*6/uL (4.60-5.80); Red Cell Distribution Width 12.7 % (11.0-16.0); White Blood Count 10.5 X10*3/uL (4.8-10.8)
[2024-09-19 07:08] LABS: Anion Gap 11 (12-20); Blood Urea Nitrogen 8 mg/dL (9-16); Calcium 8.7 mg/dL (8.4-10.2); Carbon Dioxide 26 mmol/L (22-29); Chloride 106 mmol/L (96-108); Creatinine Clr Calc Pharmacy 121.2; Estimated Glomerular Filt Rate > 60; Glucose Random 93 mg/dL (60-115); Potassium 3.6 mmol/L (3.3-5.1); Sodium 139 mmol/L (135-145)
[2024-09-19] MEDS: Sertraline HCL 25 MG TABLET PO (08:20)
--- NOTE | 2024-09-19 10:45 | PC.NURSE ---
Dr. Zavala at bedside.
--- NOTE | 2024-09-19 11:19 | PM.PNGS ---
Subjective Subjective Date of Service: 09/20/24 Interval history: Says he feels better this morning Still admits to pain but much improved Ask for some oral meds instead for breakthrough pain No fever Physical Exam Vital Signs: Vital Signs: Last Vital Signs Temp 98.2 F 09/19/24 10:00 Pulse 92 09/19/24 10:00 Resp 14 09/19/24 10:00 BP 128/85 09/19/24 10:00 Pulse Ox 92 09/19/24 10:00 O2 Del Method Room Air 09/19/24 10:00 BMI result Body Mass Index 26.9 Const: Other: Looks well General: comfortable and no acute distress Eyes: Other: Anicteric Resp: Effort & Inspection: normal respiratory effort Cardio: Rate: regular rate GI: Palpation (GI): Soft to palpation, not firm, Tenderness to palpation present (GI) (Much less tender in right upper quadrant) and no guarding Objective Data Active Medications Acetaminophen (Acetaminophen 325 Mg Tablet) 650 mg PO Q6H PRN PRN Reason: Pain, Mild 1-3,fever,headache Calcium Carbonate (Calcium Carbonate 750 Mg Tab.Chew) 750 mg PO Q4H PRN PRN Reason: Heartburn Hydromorphone HCl (Hydromorphone Hcl 1 Mg/Ml Syringe) 1 mg IVPUSH Q4H PRN; Protocol PRN Reason: Pain, Severe (Pain Scale 7-10) Last Admin: 09/19/24 08:25 Dose: 1 mg Documented By: MARIOLA Dextrose/Sodium Chloride (D5ns) 1,000 mls @ 80 mls/hr IVCONT .[id number] [facility] Last Admin: 09/19/24 06:10 Dose: 80 mls/hr Documented By: MICHAEL Piperacillin Sod/Tazobactam (Sod 3.375 gm/ Sodium Chloride) 50 mls @ 100 mls/hr IV Q6H [facility] Last Infusion: 09/19/24 05:49 Dose: Infused Documented By: MICHAEL Melatonin (Melatonin 3 Mg Tablet) 6 mg PO BEDTIME PRN PRN Reason: Insomnia Sertraline HCl (Sertraline Hcl 25 Mg Tablet) 25 mg PO DAILY [facility] Last Admin: 09/19/24 08:20 Dose: 25 mg Documented By: MARIOLA Sodium Chloride (0.9 % Sodium Chloride Flush 3 Ml Syringe) 3 ml IVFLUSH QSHIFT [facility]ENDI Last Admin: 09/19/24 08:21 Dose: Not Given Documented By: MARIOLA Non-Admin Reason: IV Running Labs 09/19/24 06:09 09/19/24 06:09 Labs: Laboratory Results - last 24 hr 09/18/24 09/18/24 09/18/24 15:13 16:11 17:27 MCV 87.2 MCH 30.7 MCHC 35.3 RDW 12.5 Plt Count 339 MPV 10.2 Immature Gran % (Auto) 0.3 Neut % (Auto) 83.2 H Lymph % (Auto) 9.6 L [place] % (Auto) 5.5 Eos % (Auto) 1.1 Baso % (Auto) 0.3 Lymph # (Auto) 1.5 [place] # (Auto) 0.9 Eos # (Auto) 0.2 Baso # (Auto) 0.1 Abs Immat Gran (auto) 0.05 H Absolute Neuts (auto) 13.1 H Absolute Nucleated RBC 0.000 Nucleated RBC % (auto) 0.0 Anion Gap 13 Estim Creat Clear Calc 102.3 Estimated GFR > 60 Random Glucose 112 Lactic Acid 1.6 Calcium 9.8 Total Bilirubin 1.2 H AST 20 ALT 14 Alkaline Phosphatase 76 C-Reactive Protein 19.48 H Total Protein 8.3 H Albumin 4.4 Lipase 14 Urine Color Dark Yellow Urine Appearance Clear Urine pH 5.5 Ur Specific [place] >= 1.030 H Urine Protein 30 (1+) H Urine Glucose (UA) Negative Urine Ketones Trace Urine Blood Negative Urine Nitrite Negative Ur Leukocyte Esterase Negative Urine RBC 0-2 Urine WBC 0-5 Ur Squamous Epith Cells 0-2 Urine Bacteria None Seen Hyaline Casts 3-5 09/19/24 06:09 MCV 90.1 MCH 30.6 MCHC 33.9 RDW 12.7 Plt Count 282 MPV 10.5 Immature Gran % (Auto) Neut % (Auto) Lymph % (Auto) [place] % (Auto) Eos % (Auto) Baso % (Auto) Lymph # (Auto) [place] # (Auto) Eos # (Auto) Baso # (Auto) Abs Immat Gran (auto) Absolute Neuts (auto) Absolute Nucleated RBC 0.000 Nucleated RBC % (auto) 0.0 Anion Gap 11 L Estim Creat Clear Calc 121.2 Estimated GFR > 60 Random Glucose 93 Lactic Acid Calcium 8.7 D Total Bilirubin AST ALT Alkaline Phosphatase C-Reactive Protein Total Protein Albumin Lipase Urine Color Urine Appearance Urine pH Ur Specific [place] Urine Protein Urine Glucose (UA) Urine Ketones Urine Blood Urine Nitrite Ur Leukocyte Esterase Urine RBC Urine WBC Ur Squamous Epith Cells Urine Bacteria Hyaline Casts Procedures Date of Service Date of Service: 09/20/24 Progress Note: A&P Assessment and plan (1) Acute cholecystitis: Status: Acute Assessment and Plan: Clinically much improved WBC and pain much better Looks well and comfortable Continue IV antibiotics for now Keep on clear liquids Possible cholecystectomy tomorrow or Saturday Labs okay Check LFTs at bedside Time Spent With Patient Time: Total time managing care of this patient today ____ minutes. Quality Stroke Does the patient have a stroke diagnosis?: No VTE Prior VTE?: No VTE Risk Level:: Medical - low VTE Device Contraindication: N/A - Device Ordered VTE Drug Contraindication: Treatment Not Indicated
[2024-09-19 12:51] LABS: Alanine Aminotransferase 8 U/L (0-40); Albumin Level 3.5 g/dL (3.5-5.0); Alkaline Phosphatase 62 U/L (39-117); Aspartate Amino Transferase 16 U/L (5-37); Bilirubin Direct 0.4 mg/dL (0.0-0.5); Bilirubin Total 0.9 mg/dL (0.0-1.0); Total Protein 6.7 g/dL (6.5-8.0)
--- NOTE | 2024-09-19 14:33 | MHC.CM.PN ---
pt lives with s/o and children pt is working willnot need services whend cd has own ride home
[2024-09-19] MEDS: oxyCODONE HCl Immed Release 5 MG TABLET 10 MG PO ×2 (14:39→21:50)
[2024-09-19 18:29] LABS: Alanine Aminotransferase 8 U/L (0-40); Albumin Level 3.6 g/dL (3.5-5.0); Alkaline Phosphatase 64 U/L (39-117); Aspartate Amino Transferase 15 U/L (5-37); Bilirubin Direct 0.3 mg/dL (0.0-0.5); Bilirubin Total 0.6 mg/dL (0.0-1.0)
[2024-09-20] VITALS (14 sets, daily range): BP systolic 129–160; BP diastolic 62–100; PULSE 76–106; RESP 12–18; TEMP 36.1–36.7; O2SAT 92–98
[2024-09-20] MEDS: HYDROmorphone HCl 1 MG/ML SYRINGE IVPUSH ×3 (03:36→19:07)
[2024-09-20] MEDS: Piperacillin Sodium/Tazobactam 3.375 GM in 0.9 % Sodium Chloride 50 ML IV ×4 (04:53→22:50)
[2024-09-20] MEDS: Dextrose 5 % and 0.9 % NaCl 1,000 ML 80 ML IVCONT ×2 (06:23→22:50)
[2024-09-20] MEDS: oxyCODONE HCl Immed Release 5 MG TABLET 10 MG PO ×4 (07:48→22:58)
[2024-09-20] MEDS: Sertraline HCL 25 MG TABLET PO (07:48)
--- NOTE | 2024-09-20 09:20 | HO.ANESPROP2 ---
[facility] Active Problems Active Problems: All Active Problems Acute cholecystitis (Acute) Abdominal pain (Acute) GERD (gastroesophageal reflux disease) (Acute) Crohn's disease of both small and large intestine (Acute) Past Medical History Medical History Seasonal allergies GERD (gastroesophageal reflux disease) Crohn's disease of both small and large intestine Family History Family History Father No problems noted. Mother HTN (hypertension) Myocardial infarction, Onset Age: 50 Brother Testicular cancer Brother HTN (hypertension) Cardiovascular disease Maternal Grandmother Cancer Family history of problems with anesthesia: No Surgical History Surgical History Hx of colonoscopy (04/27/13) History of Problems with Anesthesia: No Social History Social History Household Members: Significant Other Housing: Apartment Do you presently have visiting nurse or other home services: No Alcohol intake: former Patient Tobacco Use Status: Never used Tobacco Smoked in Last 30 Days: No Use of substances other than those prescribed or required for medical reasons: No Currently Displaying Signs/Symptoms of Drug Intoxication Withdrawal: No Have you been hit, kicked, punched, or otherwise hurt by someone within the past year? If so, by whom?: No Do you feel safe in your current relationship?: No Current Relationship Is there a partner from a previous relationship who is making you feel unsafe now?: No Are you made to feel afraid or neglected: No Advance Directives: No Advance Directives Information Provided: No Do you have a plan to hurt others: No Plan Recently lost weight without trying: No How much weight loss: Not applicable Eating poorly because of decreased appetite: No Nutrition screen score: 0 Nutrition Risks: No Nutritional Risk Poor oral hygiene: No service: No Current occupational status: student Meds Allergies Allergy/AdvReac Type Severity Reaction Status Date / Time No Known Allergies Allergy Verified 09/18/24 15:00 Active Medications: Current Medications Acetaminophen (Acetaminophen 325 Mg Tablet) 650 mg PO Q6H PRN PRN Reason: Pain, Mild 1-3,fever,headache Calcium Carbonate (Calcium Carbonate 750 Mg Tab.Chew) 750 mg PO Q4H PRN PRN Reason: Heartburn Hydromorphone HCl (Hydromorphone Hcl 1 Mg/Ml Syringe) 1 mg IVPUSH Q4H PRN; Protocol PRN Reason: Pain, Severe (Pain Scale 7-10) Last Admin: 09/20/24 03:36 Dose: 1 mg Dextrose/Sodium Chloride (D5ns) 1,000 mls @ 80 mls/hr IVCONT .[id number] [facility] Last Admin: 09/20/24 06:23 Dose: 80 mls/hr Piperacillin Sod/Tazobactam (Sod 3.375 gm/ Sodium Chloride) 50 mls @ 100 mls/hr IV Q6H [facility] Last Infusion: 09/20/24 05:27 Dose: Infused Melatonin (Melatonin 3 Mg Tablet) 6 mg PO BEDTIME PRN PRN Reason: Insomnia Oxycodone HCl (Oxycodone Hcl Immed Release 5 Mg Tablet) 10 mg PO Q4H PRN PRN Reason: Pain, Moderate(Pain Scale 4-6) Last Admin: 09/20/24 07:48 Dose: 10 mg Sertraline HCl (Sertraline Hcl 25 Mg Tablet) 25 mg PO DAILY [facility] Last Admin: 09/20/24 07:48 Dose: 25 mg Sodium Chloride (0.9 % Sodium Chloride Flush 3 Ml Syringe) 3 ml IVFLUSH QSHIFT [facility] Last Admin: 09/20/24 06:56 Dose: Not Given Home Medications ?Medication ?Instructions ?Recorded ?Confirmed ?Last Taken ?Type cholecalciferol (vitamin D3) 50 50 mcg PO DAILY 02/10/20 09/18/24 09/18/24 History mcg (2,000 unit) capsule acetaminophen 500 mg tablet 500 - 1,000 mg PO Q6H PRN Pain 09/18/24 09/18/24 Unknown History famotidine 40 mg tablet 40 mg PO DAILY@0630 PRN Acid Reflux 09/18/24 09/18/24 Unknown History sertraline 50 mg tablet 50 mg PO DAILY 09/18/24 09/18/24 09/18/24 History ustekinumab 90 mg/mL subcutaneous 90 mg subcut [id number] 09/18/24 09/18/24 4 Weeks Ago History syringe (Stelara) ~08/21/24 Exam Height,Weight and Vital Signs: Height 5 ft 6 in Weight 76 kg Last Vital Signs Temp 97.2 F 09/20/24 07:40 Pulse 82 09/20/24 07:40 Resp 16 09/20/24 07:40 BP 145/83 H 09/20/24 07:40 Pulse Ox 96 09/20/24 07:40 O2 Del Method Room Air 09/20/24 07:40 Pertinent Lab Results Pertinent Lab Results: Laboratory Tests 09/18/24 09/18/24 09/18/24 15:13 16:11 17:27 WBC 15.7 H RBC 5.14 Hgb 15.8 Hct 44.8 MCV 87.2 MCH 30.7 MCHC 35.3 RDW 12.5 Plt Count 339 MPV 10.2 Immature Gran % (Auto) 0.3 Neut % (Auto) 83.2 H Lymph % (Auto) 9.6 L Fannin % (Auto) 5.5 Eos % (Auto) 1.1 Baso % (Auto) 0.3 Lymph # (Auto) 1.5 Fannin # (Auto) 0.9 Eos # (Auto) 0.2 Baso # (Auto) 0.1 Abs Immat Gran (auto) 0.05 H Absolute Neuts (auto) 13.1 H Absolute Nucleated RBC 0.000 Nucleated RBC % (auto) 0.0 Sodium 136 Potassium 3.9 Chloride 101 Carbon Dioxide 26 Anion Gap 13 BUN 10 Creatinine 0.90 Estim Creat Clear Calc 102.3 Estimated GFR > 60 Random Glucose 112 Lactic Acid 1.6 Calcium 9.8 Total Bilirubin 1.2 H Direct Bilirubin AST 20 ALT 14 Alkaline Phosphatase 76 C-Reactive Protein 19.48 H Total Protein 8.3 H Albumin 4.4 Lipase 14 Urine Color Dark Yellow Urine Appearance Clear Urine pH 5.5 Ur Specific [place] >= 1.030 H Urine Protein 30 (1+) H Urine Glucose (UA) Negative Urine Ketones Trace Urine Blood Negative Urine Nitrite Negative Ur Leukocyte Esterase Negative Urine RBC 0-2 Urine WBC 0-5 Ur Squamous Epith Cells 0-2 Urine Bacteria None Seen Hyaline Casts 3-5 09/19/24 09/19/24 06:09 18:06 WBC 10.5 RBC 4.45 L Hgb 13.6 L Hct 40.1 L MCV 90.1 MCH 30.6 MCHC 33.9 RDW 12.7 Plt Count 282 MPV 10.5 Immature Gran % (Auto) Neut % (Auto) Lymph % (Auto) Fannin % (Auto) Eos % (Auto) Baso % (Auto) Lymph # (Auto) Fannin # (Auto) Eos # (Auto) Baso # (Auto) Abs Immat Gran (auto) Absolute Neuts (auto) Absolute Nucleated RBC 0.000 Nucleated RBC % (auto) 0.0 Sodium 139 Potassium 3.6 Chloride 106 Carbon Dioxide 26 Anion Gap 11 L BUN 8 L Creatinine 0.76 Estim Creat Clear Calc 121.2 Estimated GFR > 60 Random Glucose 93 Lactic Acid Calcium 8.7 D Total Bilirubin 0.9 0.6 Direct Bilirubin 0.4 0.3 AST 16 15 ALT 8 8 Alkaline Phosphatase 62 64 C-Reactive Protein Total Protein 6.7 7.0 Albumin 3.5 3.6 Lipase Urine Color Urine Appearance Urine pH Ur Specific [place] Urine Protein Urine Glucose (UA) Urine Ketones Urine Blood Urine Nitrite Ur Leukocyte Esterase Urine RBC Urine WBC Ur Squamous Epith Cells Urine Bacteria Hyaline Casts Airway Mallampati Class: II TM Dist: >3cm Neck ROM: Full Assessment and Plan Assessment Anesthesia Assessment: Anesthesia Plan Discussed and Chart Reviewed Final Anesthetic Review Family History of Problems with Anesthesia: No History of Problems with Anesthesia: No NPO: Yes ASA Class: II and Emergency Final Preanesthetic Review: No Changes in Pt Med Stat, Meds/Allgs Chart Reviewed, Consent Obtained/Reviewed and Anes Risks/Benef Reviewed Patient Risk: Low Procedure Risk: Intermediate Anesthetic Plan Anesthetic Plan: GA Disposition: Standard PACU
--- NOTE | 2024-09-20 09:35 | P.PNGS_ITS ---
Subjective Subjective Date of Service: 09/20/24 Interval history: he says he is ok still asks for pain meds no fever Physical Exam 2 Vital Signs: Vital Signs: Last Vital Signs Temp 97.2 F 09/20/24 07:40 Pulse 82 09/20/24 07:40 Resp 16 09/20/24 07:40 BP 145/83 H 09/20/24 07:40 Pulse Ox 96 09/20/24 07:40 O2 Del Method Room Air 09/20/24 07:40 BMI result Body Mass Index 27.0 Const: General: comfortable and no acute distress Eyes: Other: anicteric Resp: Effort & Inspection: normal respiratory effort Cardio: Rate: regular rate GI: Palpation (GI): Soft to palpation, not firm, Tenderness to palpation present (GI) (still with some tenderness on RUQ) and no guarding Objective Data Active Medications Acetaminophen (Acetaminophen 325 Mg Tablet) 650 mg PO Q6H PRN PRN Reason: Pain, Mild 1-3,fever,headache Calcium Carbonate (Calcium Carbonate 750 Mg Tab.Chew) 750 mg PO Q4H PRN PRN Reason: Heartburn Fentanyl (Fentanyl Citrate/Pf 100 Mcg/2 Ml Vial) 50 mcg IVPUSH Q5M PRN PRN Reason: Pain, Moderate to Severe (Pain Scale 4-10) Stop: 09/20/24 15:21 Hydromorphone HCl (Hydromorphone Hcl 1 Mg/Ml Syringe) 1 mg IVPUSH Q4H PRN; Protocol PRN Reason: Pain, Severe (Pain Scale 7-10) Last Admin: 09/20/24 03:36 Dose: 1 mg Documented By: RANDY Dextrose/Sodium Chloride (D5ns) 1,000 mls @ 80 mls/hr IVCONT .[id number] [facility] Last Infusion: 09/20/24 09:21 Dose: 0 mls/hr Documented By: ORESTESFAMamta Piperacillin Sod/Tazobactam (Sod 3.375 gm/ Sodium Chloride) 50 mls @ 100 mls/hr IV Q6H [facility] Last Infusion: 09/20/24 05:27 Dose: Infused Documented By: RANDY Melatonin (Melatonin 3 Mg Tablet) 6 mg PO BEDTIME PRN PRN Reason: Insomnia Naloxone HCl (Naloxone Hcl 0.4 Mg/Ml Vial) 0.04 mg IVPUSH Q5M PRN PRN Reason: Excessive sedation or RR < 8 Ondansetron HCl (Ondansetron Hcl 4 Mg/2 Ml Vial) 4 mg IVPUSH ONCE PRN PRN Reason: Nausea and Vomiting Stop: 09/20/24 15:21 Oxycodone HCl (Oxycodone Hcl Immed Release 5 Mg Tablet) 10 mg PO Q4H PRN PRN Reason: Pain, Moderate(Pain Scale 4-6) Last Admin: 09/20/24 07:48 Dose: 10 mg Documented By: ORESTESFAMamta Sertraline HCl (Sertraline Hcl 25 Mg Tablet) 25 mg PO DAILY [facility] Last Admin: 09/20/24 07:48 Dose: 25 mg Documented By: ORESTESFAMamta Sodium Chloride (0.9 % Sodium Chloride Flush 3 Ml Syringe) [address] [facility] Last Admin: 09/20/24 06:56 Dose: Not Given Documented By: KHOI Non-Admin Reason: Previously Administered Labs 09/19/24 06:09 09/19/24 06:09 Labs: Laboratory Results - last 24 hr 09/19/24 09/19/24 06:09 18:06 Total Bilirubin 0.9 0.6 Direct Bilirubin 0.4 0.3 AST 16 15 ALT 8 8 Alkaline Phosphatase 62 64 Total Protein 6.7 7.0 Albumin 3.5 3.6 Microbiology Microbiology Results: Microbiology 09/18/24 16:11 Blood Culture - Preliminary Blood - Venous No growth after 24 hours. 09/18/24 16:11 Blood Culture - Preliminary Blood - Venous No growth after 24 hours. Procedures Date of Service Date of Service: 09/20/24 Progress Note: A&P Assessment and plan (1) Acute cholecystitis: Status: Acute Assessment and Plan: still with symptoms plan lap dylan this AM reviewed technique of procedure, risks, benefits, extensively he understands and has given consent at bedside LFTS normal Time Spent With Patient Time: Total time managing care of this patient today ____ minutes. Quality Stroke Does the patient have a stroke diagnosis?: No VTE Prior VTE?: No VTE Risk Level:: Medical - low VTE Device Contraindication: N/A - Device Ordered VTE Drug Contraindication: Treatment Not Indicated
--- NOTE | 2024-09-20 11:22 | W.PM.OPN ---
Operative Note Operative Note Date of Service: 09/20/24 Narrative: Preop diagnosis: Acute calculous cholecystitis Postop diagnosis: Acute calculous cholecystitis, with severe erythema, and induration and edema of the gallbladder Procedure: Laparoscopic cholecystectomy , with difficult dissection in view of the severe inflammatory changes surrounding the gallbladder Surgeon: Gaurav Zavala MD public health training assistant: EVELINA Kohli He was brought to the operating room. He was placed supine under general anesthesia via endotracheal tube. The abdomen was prepped and draped in the usual sterile fashion. A surgical time-out was done. The patient he is scheduled IV Zosyn. I made a short supraumbilical incision with a blade 15. There was note of a hernia this area. I therefore sharply dissected the full-thickness of the skin subcutaneous fat and define the hernia. The hernia was sharply dissected with Metzenbaum scissors down to the fascial defect. This was fat containing. I divided all the stones tethering the hernia contents with the fascial edge with Metzenbaum scissors until I was able to completely reduce this hernia. The hernia defect was about 1 0.2 cm in diameter. I was able to enter the peritoneal cavity. Through this incision a Griffith port was introduced. Pneumoperitoneum was introduced to a pressure of 15 mm Hg. From here on the rest of the procedure was done under vision with the 10 mm laparoscope. With laparoscopic visualization and inserted a 5/12 mm port in the epigastric area below the subcostal margin. Two 5 mm ports were introduced below the subcostal margin along the anterior axillary line and the midclavicular line. The fundus gallbladder was visualized but this was covered entirely by omental fat. We carefully used graspers through the working ports to separate some of the indurated omental fat from the fundus of the gallbladder until we had an area which we could use for aspiration. I used an aspirating needle fundus to decompress the gallbladder. Clear fluid was drained history with a hydrops. Once I felt that the gallbladder was adequately decompressed, I removed the aspirating needle. I applied a grasper again in the fundus to retract the gallbladder cephalad. I then proceeded to do careful dissection of the rest of the anterior wall of the gallbladder using the [place] dissector to release all these markedly adherent omental fat. This part of the procedure took an extended period of time because of the amount of adherent omentum. Eventually was able to release all of the omentum and expose the entire anterior wall. I was able to apply a grasper towards the pouch. The neck was also indurated so I had to again to careful dissection with the [place] dissector as well as with the tip of laparoscopic suction to release all this indurated tissue and expose as much of the cystic duct as possible. Was note of a lot of indurated fatty tissue surrounding the cystic duct so we had to do more dissection to define this. By doing so I was able to achieve a critical view of the hepatocystic triangle. Other tubular structures around this area. I then applied clips on the cystic duct with 2 clips applied distally. The cystic duct was retracted between clips endo-scissors. I continued to gently dissect the area below of the neck of the gallbladder with the [place] dissector to clearly identify the cystic artery. Clips were applied in 2 clips being applied distally and the artery and the cystic artery was transected between clips endo-scissors There was more indurated fatty areolar tissue surrounding the hilum. We had to do gentle dissection with the [place] dissector to make sure that there were no other vessels and this area. I had to apply clips on some of these fine vessels to make sure that we had good hemostasis during the dissection. This fine vessels was transected between clips with scissors We therefore were able to release the gallbladder from the cystic duct and the cystic artery. The gallbladder was very markedly swollen, inflamed, erythematous and edematous. We therefore had a hard time applying the grasper and we were noticing tears were gallbladder was being dressed in view of the very inflamed gallbladder wall I then used the electrocautery spatula to divide the hilum after we had clipped all fine vessels. I then scored the peritoneum of the gallbladder with electrocautery to thin this out. We then proceeded to separate the gallbladder from the liver bed by defining a plane of dissection. However, the gallbladder was again very indurated and there were no good planes as we the gallbladder gently from the liver bed. We had to do careful dissection to separate the gallbladder so as not to further bleeding from the liver bed and further tears on the very erythematous thickened gallbladder wall. Again this part of the procedure took an extended period time until we are able to completely remove the gallbladder. The gallbladder was retrieved through an endobag through the umbilical incision I reinserted all ports and re-insufflated. I cauterized oozing areas in the liver bed. I copiously irrigated in view of some other contents draining area from all the tears within the gallbladder fossa I applied Surgicel for additional hemostasis on the liver bed. I observed all 4 quadrants. There was evidence of any bowel injury or any bleeding. There was no evidence of any pathology I observed the subhepatic space for 2 minutes and there was note of good hemostasis We therefore desufflated through the port sites. I removed all ports under vision with the laparoscope. The umbilical port was removed last We then proceeded to repair this umbilical hernia by defining the fascial defect. I made a [id number] stitch to close this fascial defect using a Polysorb 0 stitch I then irrigated all incisions and closed skin incisions with 4-0 subcuticular sutures I infiltrated all incisions with Marcaine 0.5% for postop analgesia. Dressings were applied and the procedure was completed The patient tolerated procedure well. There were no immediate complications. Initial and final counts of sponges and instruments were correct. Estimated blood loss about he had cc The patient was extubated without difficulty and transferred to the recovery room with stable vital signs.
--- NOTE | 2024-09-20 12:17 | PC.NURSE ---
1215 Radiology at bedside for stat CXR. Dr. Zavala at bedside to check on patient- made aware patient adventitious lung sounds spo2 desaturation <90% requiring supplemental o2. Anesthesia ordered CXR.
--- NOTE | 2024-09-20 14:38 | PM.EVENT ---
Event Note Date of Service: 09/21/24 Event Note: Seen postop Status post laparoscopic cholecystectomy earlier - gallbladder markedly inflamed, indurated, difficult dissection Appears to have good pain control Having lunch currently Looks well Stable vital signs Abdomen is soft Pain management Possible home tomorrow at bedside Time Spent With Patient Time: Total time managing care of this patient today ____ minutes.
[2024-09-20] MEDS: Acetaminophen 325 MG TABLET 650 MG PO (17:38)
[2024-09-20] MEDS: 0.9 % Sodium Chloride Flush 3 ML SYRINGE IVFLUSH (17:40)
[2024-09-21] MEDS: HYDROmorphone HCl 1 MG/ML SYRINGE IVPUSH ×2 (01:51→08:12)
[2024-09-21 03:13] VITALS: BP 147/94; PULSE 71; RESP 18; TEMP 36.6; O2SAT 96
[2024-09-21] MEDS: Piperacillin Sodium/Tazobactam 3.375 GM in 0.9 % Sodium Chloride 50 ML IV (04:47)
[2024-09-21] MEDS: oxyCODONE HCl Immed Release 5 MG TABLET 10 MG PO ×2 (05:09→09:18)
--- NOTE | 2024-09-21 07:39 | P.PNGS_ITS ---
Subjective Subjective Date of Service: 09/21/24 <Stephan Valverde PA-C - Last Filed: 09/21/24 10:38> 09/21/24 <Gaurav Zavala MD - Last Filed: 09/21/24 10:00> Patient reports: tolerating a regular diet, flatus and bowel movement <Stephan Valverde PA-C - Last Filed: 09/21/24 10:38> Interval history: Patient doing well, experiencing mild pain in the RUQ, around the incision site. He states that he has some pain with taking a deep breath. Reports he was able to eat a small amount for dinner last night, denies nausea, vomiting. Has been ambulating to and from the bathroom. Endorses passing flatus, liquid bowel movements. Denies fever/chills. <HOLGER Tracey Last Filed: 09/21/24 10:38> Physical Exam 2 Vital Signs: Vital Signs: Last Vital Signs Temp 97.8 F 09/21/24 03:13 Pulse 71 09/21/24 03:13 Resp 18 09/21/24 03:13 BP 147/94 H 09/21/24 03:13 Pulse Ox 96 09/21/24 03:13 O2 Del Method Nasal Cannula 09/21/24 03:13 O2 Flow Rate 2 09/21/24 03:13 BMI result Body Mass Index 27.0 <HOLGER Tracey Last Filed: 09/21/24 10:38> Const: General: comfortable and no acute distress <HOLGER Tracey Last Filed: 09/21/24 10:38> Orientation/consciousness: patient oriented x3 <HOLGER Tracey Last Filed: 09/21/24 10:38> Resp: Effort & Inspection: normal respiratory effort and able to speak in complete sentences <HOLGER Tracey Last Filed: 09/21/24 10:38> GI: Other: Incision site dressings intact. No surrounding erythema. Mild sanguineous discharge <HOLGER Tracey Last Filed: 09/21/24 10:38> Inspection: No Abdominal wall edema and No distended <HOLGER Tracey Last Filed: 09/21/24 10:38> Palpation (GI): Soft to palpation, not firm, Tenderness to palpation present (GI) (mild incisional site pain), no guarding and not rigid <Stephan Valverde PA-C - Last Filed: 09/21/24 10:38> Percussion: Yes normal to percussion <Stephan Valverde PA-C - Last Filed: 09/21/24 10:38> Neuro: General: patient oriented x3 <Stephan Valverde PA-C - Last Filed: 09/21/24 10:38> Objective Data Active Medications Acetaminophen (Acetaminophen 325 Mg Tablet) 650 mg PO Q6H PRN PRN Reason: Pain, Mild 1-3,fever,headache Last Admin: 09/20/24 17:38 Dose: 650 mg Documented By: AUSTIN Calcium Carbonate (Calcium Carbonate 750 Mg Tab.Chew) 750 mg PO Q4H PRN PRN Reason: Heartburn Hydromorphone HCl (Hydromorphone Hcl 1 Mg/Ml Syringe) 1 mg IVPUSH Q4H PRN; Protocol PRN Reason: Pain, Severe (Pain Scale 7-10) Last Admin: 09/21/24 01:51 Dose: 1 mg Documented By: RANDY Dextrose/Sodium Chloride (D5ns) 1,000 mls @ 80 mls/hr IVCONT .[id number] [facility] Last Admin: 09/20/24 22:50 Dose: 80 mls/hr Documented By: RANDY Piperacillin Sod/Tazobactam (Sod 3.375 gm/ Sodium Chloride) 50 mls @ 100 mls/hr IV Q6H [facility] Last Infusion: 09/21/24 05:22 Dose: Infused Documented By: RANDY Melatonin (Melatonin 3 Mg Tablet) 6 mg PO BEDTIME PRN PRN Reason: Insomnia Naloxone HCl (Naloxone Hcl 0.4 Mg/Ml Vial) 0.04 mg IVPUSH Q5M PRN PRN Reason: Excessive sedation or RR < 8 Oxycodone HCl (Oxycodone Hcl Immed Release 5 Mg Tablet) 10 mg PO Q4H PRN PRN Reason: Pain, Moderate(Pain Scale 4-6) Last Admin: 09/21/24 05:09 Dose: 10 mg Documented By: RANDY Sertraline HCl (Sertraline Hcl 25 Mg Tablet) 25 mg PO DAILY [facility] Last Admin: 09/20/24 07:48 Dose: 25 mg Documented By: KHOI Sodium Chloride (0.9 % Sodium Chloride Flush 3 Ml Syringe) 3 ml IVFLUSH QSHIFT [facility] Last Admin: 09/21/24 01:18 Dose: Not Given Documented By: RANDY Non-Admin Reason: IV Running <Stephan Valverde PA-C - Last Filed: 09/21/24 10:38> Labs CBC & Chem 7: 09/19/24 06:09 09/19/24 06:09 <Stephan Valverde PA-C - Last Filed: 09/21/24 10:38> Labs: Laboratory Results - last 24 hr 09/20/24 08:59 Blood Type A Negative Antibody Screen NEGATIVE <Stephan Valverde PA-C - Last Filed: 09/21/24 10:38> Microbiology Microbiology Results: Microbiology 09/18/24 16:11 Blood Culture - Preliminary Blood - Venous No growth after 48 hours. 09/18/24 16:11 Blood Culture - Preliminary Blood - Venous No growth after 48 hours. <Stephan Valverde PA-C - Last Filed: 09/21/24 10:38> Procedures Date of Service Date of Service: 09/21/24 <Stephan Valverde PA-C - Last Filed: 09/21/24 10:38> 09/21/24 <Gaurav Zavala MD - Last Filed: 09/21/24 10:00> Progress Note: A&P Assessment and plan (1) Acute cholecystitis: Status: Acute <Stephan Valverde PA-C - Last Filed: 09/21/24 10:38> Assessment and Plan: Status post laparoscopic cholecystectomy yesterday Doing very well Incisions clean and dry Abdomen is soft Tolerating diet Okay to DC home Discharge instructions reinforced with patient Seen and examined independently <Gaurav Zavala MD - Last Filed: 09/21/24 10:00> Assessment and Plan: 34 year old male POD1 s/p laparoscopic cholecystectomy. Patient doing well this morning, feeling better. Tolerating diet. Bowel function adequate. Abdomen is soft and benign. Incisions clean and dry. Patient feels ready to go home. < Stephan Valverde PA-C - Last Filed: 09/21/24 10:38> Time Spent With Patient Time: Total time managing care of this patient today ____ minutes. <Stephan Valverde PA-C - Last Filed: 09/21/24 10:38> Quality Stroke Does the patient have a stroke diagnosis?: No <Stephan Valverde PA-C - Last Filed: 09/21/24 10:38> VTE Prior VTE?: No <Stephan Valverde PA-C - Last Filed: 09/21/24 10:38> VTE Risk Level:: Medical - low <Stephan Valverde PA-C - Last Filed: 09/21/24 10:38> VTE Device Contraindication: N/A - Device Ordered <Stephan Valverde PA-C - Last Filed: 09/21/24 10:38> VTE Drug Contraindication: Treatment Not Indicated <Stephan Valverde PA-C - Last Filed: 09/21/24 10:38>
[2024-09-21 07:48] VITALS: BP 159/90; PULSE 80; RESP 16; TEMP 36.6; O2SAT 92
[2024-09-21] MEDS: Sertraline HCL 25 MG TABLET PO (08:08)
--- NOTE | 2024-09-21 09:08 | MHC.CM.PN ---
Patient is discharged to home self care. he has arranged for transportation home.
--- NOTE | 2024-09-21 09:26 | HO.POSTANES ---
Post Anesthesia Evaluation Post Anesthesia Evaluation Date of Service: 09/21/24 Vital Signs: Vital Signs Temp Pulse Resp BP Pulse Ox O2 Del Method O2 Flow Rate 09/21/24 07:48 97.8 F 80 16 159/90 H 92 Room Air 09/21/24 03:13 97.8 F 71 18 147/94 H 96 Nasal Cannula 2 09/20/24 23:16 97.7 F 76 18 155/90 H 97 Nasal Cannula 2 Anesthesia: General Endotracheal-GETA Mental Status: Awake Pain Control: Satisfactory Nausea/Vomiting: None Hydration: Adequate Anesthesia-Related Issues: No Anes. Related Issues
--- NOTE | 2024-09-21 09:38 | P.DS_ITS ---
DS: Providers Provider Date of Service: 09/21/24 Date of admission: 09/18/24 18:09 Date of discharge: 09/21/24 Primary care physician: [place] Physician Attending physician on admission: Gaurav Zavala Attending physician on discharge: Gaurav Zavala DS: Diagnosis Discharge Diagnosis (1) Acute cholecystitis: Status: Acute DS: Summary Hospital Course Hospital Course: HPI AT ADMISSION: Jon Pagan Jr is a 34-year-old male with known Crohn's disease, in the ER because right upper quadrant pain. He says that this started sometime about 03:00 this morning. This seems to have been constant although not really severe he says. He denies any vomiting. He says that because of the persistence of pain, I decided to come to the emergency room. He says that a week ago, he had similar pain which resolved on his own after a day. He does admit to having some low-grade pain on and off the rest of the week. He says was attributing this to his Crohn's disease. He was diagnosed with Crohn's disease about 10 years ago. He has been maintained on Stelara. He used to see Dr. Bear of GI here but Liv HUIZAR, he said he was seeing trench digger via [facility]. His CAT scan and this shows inflammatory changes in the gallbladder consistent with acute cholecystitis. HOSPITAL COURSE: The patient was admitted to the surgical service for further treatment of the acute cholecystitis. He was admitted for IV abx and elected to proceed with laparoscopic cholecystectomy, possible open during his stay for persistent pain. He was added onto the OR schedule for the following day. On 09/20/24, a laparoscopic cholecystectomy was performed by Dr. Zavala without complication. The patient tolerated the procedure well. He had an uncomplicated recovery course. On POD #1, he felt well and was tolerating a solid diet without nausea or vomiting, had good pain control and was ambulating without difficulty. He was hemodynamically stable. His abdomen was benign with appropriate post op tenderness and clean and intact dressings. He felt ready for discharge. He was discharged to home on 09/21/24 in stable condition. He is to follow up in the office in 2 weeks. Status at Discharge Functional status at discharge: independent ambulation Overall status at discharge: patient is progressing back to baseline Time Attestation Discharge Coordination Time (in mins): 30 Quality: Safe Use of Opioids Does Pt have an Active Cancer Diagnosis on the Problem List?: No Quality: Stroke Does the patient have a stroke diagnosis?: No Physical Exam Vital Signs: Vital Signs: Last Vital Signs Temp 97.8 F 09/21/24 07:48 Pulse 80 09/21/24 07:48 Resp 16 09/21/24 07:48 BP 159/90 H 09/21/24 07:48 Pulse Ox 92 09/21/24 07:48 O2 Del Method Room Air 09/21/24 07:48 O2 Flow Rate 2 09/21/24 03:13 BMI result Body Mass Index 27.0 Const: General: comfortable, no acute distress and alert Orientation/consciousness: patient oriented x3 GI: Inspection: No distended and Yes incision (dressings clean and intact) Palpation (GI): Soft to palpation and Tenderness to palpation present (GI) (mild incisional) Skin: General skin exam: no jaundice Neuro: General: patient oriented x3 and moves all extremities DS: Data Data Completed and Pending Pending studies at discharge: Pending at discharge 09/20/24 10:57 Surgical [PTH] Routine Labs on day of discharge: Laboratory Results - last 24 hr 09/20/24 08:59 Blood Type A Negative Antibody Screen NEGATIVE Preliminary micro results at discharge 09/18/24 16:11 Blood Culture - Preliminary Blood - Venous No growth after 48 hours. 09/18/24 16:11 Blood Culture - Preliminary Blood - Venous No growth after 48 hours. Discharge Plan Discharge Anticipated Discharge Date/Time: 09/21/24 12:00 Patient Disposition: Home, Self-Care Discharge Diagnosis: Acute cholecystitis Referrals: Gaurav Zavala MD [Physician] - 2 Weeks Physician,Unknown J [Primary Care Provider] - 1 Week Discharge Medications: New ibuprofen 600 mg tablet 600 mg PO Q6H PRN (Reason: pain) Qty: 25 0RF oxycodone 5 mg tablet 5 mg PO Q4H PRN (Reason: pain) Qty: 25 0RF Rx Instructions: Partial Fill upon patient request. Continued Stelara 90 mg/mL syringe 90 mg subcut [id number] sertraline 50 mg tablet 50 mg PO DAILY famotidine 40 mg tablet 40 mg PO DAILY@0630 PRN (Reason: Acid Reflux) acetaminophen 500 mg Tablet 500 - 1,000 mg PO Q6H PRN (Reason: Pain) cholecalciferol (vitamin D3) 50 mcg (2,000 unit) capsule 50 mcg PO DAILY Discharge Orders: Discharge Order (Routine); Ordered 09/21/24 Ordered By: Laura Telles Diet: Advance to usual diet Activity on Discharge: No heavy lifting Stand Alone Forms: Patient Portal Discharge page Print Language: Upper Sorbian Activity Restrictions/Additional Instructions: If the incision area is tender, you may apply an ice pack for short intervals (No more than 20 minutes on, followed by at least 20 minutes off). Do not apply heat. Do not use creams, lotions, or topical antibiotics unless instructed to do so by your surgeon. These can cause infection or allergic reaction. No lifting more than 20 lbs Okay to shower and get incisions wet starting 09/22/2024 Okay to change dressings with gauze or Band-Aid starting 09/22/2024 No strenuous activities Call the office for follow-up in 2 weeks - with Dr. Zavala Call Your Doctor If: -Your temperature exceeds 101.5? F -You experience excessive pain or swelling -You have an unexpected reaction to medication -You have excessive bleeding -You experience continued vomiting/nausea -Your incision begins to separate -Your incision shows signs of infection such as increased redness, swelling, excessive pain, drainage (light blood or clear fluid is normal) or heat Care Plan Goals: Returned to baseline health Health Concerns: Recent surgery for acute cholecystitis Has known Crohn's disease Plan of Treatment: Oral pain meds Assessment: Doing very well postop Discharge Date/Time: 09/21/24 09:19
== END 2024-09-21 09:19 | disposition home or self-care (01) | DRG 263 ==
LOC: HO.ED 18:32 → HO.EDOVER 18:40 → HO.S3 09-19 13:31
PROVIDERS: Physician Assistant; Admitting Provider Surgery; Emergency Provider Emergency Medicine; Visit Provider Surgery
PROC: 0FT44ZZ Resection of Gallbladder, Percutaneous Endoscopic Approach (ICD-10-PCS; CPT 47562; principal; 2024-09-20 09:00)
DX: K80.00 Calculus of gallbladder with acute cholecystitis without obstruction (principal); K42.0 Umbilical hernia with obstruction, without gangrene; K50.90 Crohn's disease, unspecified, without complications; Z79.899 Other long term (current) drug therapy
CPT/HCPCS: 47562; 36415; 71045; 74177; 80048; 80053; 80076; 81001; 83605; 83690; 85025; 85027; 86140; 86850; 86900; 86901; 87040; 88304; 99221; 99285; J1100; J1171; J1885; J2003; J2250; J2405; J2543; J2704; J2795; J3010; J7120; Q9967

== ENCOUNTER → 2024-09-18 16:02 | Outpatient (BNV) | payer BC, SELFPAY | PROVIDERS: Emergency Provider Emergency Medicine; Visit Provider Radiology Diagnostic Radiology | DX: K81.0 Acute cholecystitis (principal) | CPT/HCPCS: 74177 ==

== ENCOUNTER 2024-09-18 18:09 | Outpatient (BNV) | payer BC, SELFPAY | END 2024-09-20 12:01 | PROVIDERS: Admitting Provider Surgery; Emergency Provider Emergency Medicine; Visit Provider Radiology Vascular & Interventional Radiology | DX: J84.9 Interstitial pulmonary disease, unspecified (principal) | CPT/HCPCS: 71045 ==

== ENCOUNTER → 2024-09-18 18:09 | Outpatient (BNV) | payer BC, SELFPAY | PROVIDERS: Admitting Provider Surgery; Emergency Provider Emergency Medicine; Visit Provider Surgery | DX: K81.0 Acute cholecystitis (principal) | CPT/HCPCS: 47562; 99024; 99222; 99232; 99499 ==

== ENCOUNTER 2024-10-01 10:51 | Outpatient (AMB) | payer OTHER, SELFPAY ==
[2024-10-01 10:54] VITALS: BP 136/100; PULSE 85; BMI 25.8
--- NOTE | 2024-10-01 10:54 | MHC.OFFVIS ---
Vital Signs 10/01/24 10:54 Height 5 ft 7 in Weight 165 lb BMI 25.8 BP 136/100 H Blood Pressure Location Rt brachial Position Sitting Pulse 85 Intake Visit Reasons: Ahsan dylan~ 09-20-24 Intake Note: Patient here s/p Laparoscopic cholecystectomy , with difficult dissection in view of the severe inflammatory changes surrounding the gallbladder. Patient c/o: mild pain, diarrhea. Taking rx pain meds at night. Steri strips fell off. Reports incisions healing well. 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 He tolerated procedure well. He was discharged on postop day 1. He is doing well postop. He has no GI complaints. He denies significant pain. He has good oral intake. [facility] Medical History Seasonal allergies GERD (gastroesophageal reflux disease) Crohn's disease of both small and large intestine Surgical History Hx of colonoscopy (04/27/13) Family History Father No problems noted. Mother HTN (hypertension) Myocardial infarction, Onset Age: 50 Brother Testicular cancer Brother HTN (hypertension) Cardiovascular disease Maternal Grandmother Cancer Social History Household Members: Significant Other Housing: Apartment Do you presently have visiting nurse or other home services: No Alcohol intake: former Patient Tobacco Use Status: Never used Tobacco service: No Current occupational status: student Review of Systems Const Denies chills and Denies fever(s) Card Denies chest pain Resp Denies cough GI Denies abdominal pain Physical Exam Vital Signs: Last Vital Signs Pulse 85 10/01/24 10:54 BP 136/100 H 10/01/24 10:54 BMI result Body Mass Index 25.8 Const General: comfortable and no acute distress Eyes Other: Anicteric Resp Effort & Inspection: normal respiratory effort GI Other: All incisions are well healed Palpation (GI): Soft to palpation and not firm Assessment & Plan Assessment & Plan (1) Acute cholecystitis: Code(s): K81.0 - Acute cholecystitis Category: Medical Plan: Status post laparoscopic cholecystectomy. He is doing well postoperatively. All incisions are well healed. His path report shows acute cholecystitis. He was advised to avoid lifting anything more than 20 lb for 2 more weeks. He can otherwise follow up on a p.r.n. basis. Coding Level of Care Code Global (70531) Diagnoses Acute cholecystitis K81.0
== END 2024-10-01 11:13 | disposition home or self-care (01) ==
PROVIDERS: Visit Provider Surgery
DX: K81.0 Acute cholecystitis (principal)
CPT/HCPCS: 99024